=== PATIENT | female | born 1970 | race Caucasian/White ===

== ENCOUNTER 2019-12-08 19:33 | Emergency (ER) | payer BC ==
[2019-12-08 19:58] LABS: Bilirubin Small (Negative); Blood, Urine Moderate (Negative); Clarity Cloudy (Clear); Glucose, Urine (Dipstick) Negative (Negative); Leukocyte Negative (Negative); Nitrite Negative (Negative); Protein, Urine (Dipstick) 30 mg/dL (Neg-Trace); Urobilinogen 0.2 mg/dL (Less than 2)
[2019-12-08 20:01] LABS: Bacteria/HPF 2+ HPF (None Seen); Broad Cast None Seen LPF (None Seen); Calcium Oxalate Crystals None Seen HPF (None Seen); Cellular Cast None Seen LPF (None Seen); Epithelial Cast None Seen LPF (None Seen); Fatty Cast None Seen LPF (None Seen); Mucous/LPF None Seen LPF (<2+); Other Casts None Seen LPF (None Seen); Oval Fat Bodies/HPF None Seen HPF (None Seen); Red Blood Cell Cast None Seen LPF (None Seen); Renal Epithelial None Seen HPF (None Seen); Sperm/HPF None Seen HPF (None Seen); Transitional Epithelial None Seen HPF (None Seen); Trichomonas/HPF None Seen HPF (None Seen); Triple Phosphate Crystal None Seen HPF (None Seen); Unclassified Crystals None Seen HPF (None Seen); Waxy Cast None Seen LPF (None Seen); White Blood Cell Cast None Seen LPF (None Seen); Yeast-Budding None Seen HPF (None Seen); Yeast-Hyphae None Seen HPF (None Seen)
[2019-12-08] MEDS ORDERED: Morphine 4 MG/ML VIAL ONE (20:11)
[2019-12-08] MEDS ORDERED: Morphine 2 MG/ML SYRINGE ONE (20:12)
[2019-12-08] MEDS ORDERED: Ondansetron ODT 4 MG TAB ONE (20:29)
[2019-12-08 20:38] LABS: #Basophils 0.1 thou/uL (0.0-0.2); #Eosinphils 0.2 thou/uL (0.0-0.7); #Lymphocytes 1.6 thou/uL (1.20-3.40); #Monocytes 0.7 thou/uL (0.11-0.59); #Neutrophils 7.9 thou/uL (1.40-6.50); %Basophils 0.7 % (0.0-1.0); %Eosinophils 2.1 % (0.0-10.0); %Lymphocytes 14.9 % (21.0-51.0); %Monocytes 6.9 % (0.0-10.0); %Neutrophils 75.3 % (42.0-75.0); Hemoglobin 14.3 g/dL (12.0-16.0); Mean Corpuscular HGB CONC 31.1 g/dL (32.0-36.0); Mean Corpuscular Hemoglobin 29.3 pg (27.0-31.0); Mean Platelet Volume 10.1 fL (7.4-10.4); Platelet Count 150 thou/uL (130-400); Red Blood Cell (RBC) Count 4.88 mill/uL (4.20-5.40); White Blood Cell (WBC) Count 10.5 thou/uL (4.8-10.8)
[2019-12-08 20:47] LABS: ALT (SGPT) 21 U/L (8-55); AST (SGOT) 26 U/L (5-34); Albumin 4.2 g/dL (3.5-5.0); Alkaline Phosphatase 91 U/L (40-110); Anion Gap 19 mmol/L (10-20); BUN (Urea Nitrogen) 18 mg/dL (7.0-18.7); Bilirubin, Total 0.7 mg/dL (0.2-1.2); Calc. Creatinine Clearance 0 mL/min (70-130); Calcium 9.5 mg/dL (7.8-10.44); Carbon Dioxide 21 mmol/L (22-29); Chloride 105 mmol/L (98-107); Estimated GFR-MDRD 66; Globulin 2.6 g/dL (2.4-3.5); Glucose 95 mg/dL (70-105); Lipase 22 U/L (8-78); Potassium 3.7 mmol/L (3.5-5.1); Protein, Total 6.8 g/dL (6.0-8.3); Sodium 141 mmol/L (136-145)
[2019-12-08] MEDS ORDERED: Ketorolac Tromethamine 30 MG/ML VIAL ONE (20:59)
--- NOTE | 2019-12-08 21:33 | CT ---
CT ABDOMEN AND PELVIS WITHOUT CONTRAST: Date: 12-08-[address] of the abdomen and pelvis was performed for evaluation of flank pain. There is a prior hist ory of renal calculi. FINDINGS: The major finding on today's study is an 8 mm proximal right ureteral calculus just a few centimeters below the right UPJ. This is causing moderate right hydronephrosis. There are nonobstructing calculi still present in both the right kidney and left kidney. Additionally, there is a 4.2 cm rounded exop hytic mass protruding from the left kidney that is almost certainly a cyst. Its mean CT numbers are l ow, around 4 units. The lung bases are clear. The liver, spleen, pancreas, adrenal glands, and aorta showed no acute find ings. A prior cholecystectomy is noted. The bowel shows no distention or wall thickening. Some minor amounts of streaking around the right co ronnie is probably not acute. The wall does not seem thick in this area. No free air or free fluid was s een. CT of the pelvis shows no pelvic masses, fluid collections, or acute inflammatory changes. An IUD is noted in the uterus. IMPRESSION: 1. 8 mm proximal right ureteral calculus causing moderately severe right hydronephrosis. 2. Bilateral nonobstructing renal calculi. 3. 4.2 cm exophytic mass from the left kidney that has characteristics typical of a cyst. If an ultra sound has never been done of it, that would be preferred, but the CT numbers are quite low as would b e expected. Preliminary report called to Dr. Steven at 2030 on 12-08-2019. POS: HOME
== END 2019-12-08 21:31 | disposition home or self-care (01) ==
LOC: BURERS 19:33
DX: N13.2 Hydronephrosis with renal and ureteral calculous obstruction (principal); F32.9 Major depressive disorder, single episode, unspecified; Z79.899 Other long term (current) drug therapy
CPT/HCPCS: 74176; 80053; 81003; 81015; 83605; 83690; 85025; 96372; J1885; J2270; Q0162